=== PATIENT | female | born 1955 | race Caucasian/White ===

== ENCOUNTER → 2025-01-08 | Outpatient (CLI) | payer SELFPAY, OTHER ==
--- NOTE | 2025-01-08 09:26 | BI_ITS ---
EXAM: SCRN MAMM (CAD)W/PREETI BILAT DATE: 01/08/2025 CLINICAL HISTORY: F, Age 69 y/o , SCREEN No family history. TECHNIQUE: Procedure Code: [id number] Modality: MG Procedure: SCRN MAMM (CAD)W/PREETI BILAT COMPARISON: Prior exam(s) dated October 16, 2021.. FINDINGS: TISSUE DENSITY: The breasts are extremely dense, which lowers the sensitivity of mammography. Bilateral Breast Mammographic Findings: No significant masses, calcifications or other abnormalities are identified. Stable secretory calcifications. No suspicious masses, areas of developing architectural distortion, or suspicious calcifications. There has been no significant interval change. BI/SCRN MAMM (CAD)W/PREETI BILAT IMPRESSION: Stable screening mammogram. OVERALL FINAL ASSESSMENT BI-RADS 2: BENIGN RECOMMENDATION: Routine annual follow-up in 1 Year Additional Recommendation none A letter with findings and recommendations will be mailed to the patient. Reading Location: [facility]
== END | disposition home or self-care (01) ==
PROVIDERS: PCP Family Medicine; Referring Provider Nurse Practitioner Women's Health; Visit Provider Nurse Practitioner Women's Health
DX: Z12.31 Encounter for screening mammogram for malignant neoplasm of breast (principal)
CPT/HCPCS: 77063; 77067